=== PATIENT | male | born 1980 | race African-American/Black ===

== ENCOUNTER 2017-09-14 09:10 | Emergency (ER) | payer MEDICARE ==
[~2017-09-14] VITALS: Ht 154.9 cm; Wt 56.2 kg
[~2017-09-14 09:10] MED LIST: BACL10TA PO; HYDR-4100 PO; METH750T3 PO; TEMA15CA51 PO
[2017-09-14 09:15] VITALS: BP_SYST 143
[2017-09-14] MEDS ORDERED: KETOROLAC TROMETHAMINE 60 MG/2 ML VIAL IM ONE (10:15)
[2017-09-14 10:49] VITALS: BP_SYST 138
== END 2017-09-14 10:49 | disposition home or self-care (01) ==
LOC: SED 09:10
DX: S16.1XXA Strain of muscle, fascia and tendon at neck level, initial encounter (principal); K21.9 Gastro-esophageal reflux disease without esophagitis; Q90.9 Down syndrome, unspecified; Z91.011 Allergy to milk products; X58.XXXA Exposure to other specified factors, initial encounter; Y93.89 Activity, other specified; Y92.89 Other specified places as the place of occurrence of the external cause; Y99.8 Other external cause status
CPT/HCPCS: 72125; 96372; 99284; J1885; J7030

== ENCOUNTER 2019-03-05 11:43 | Emergency (ER) | payer BC, MEDICARE ==
[~2019-03-05] VITALS: Ht 154.9 cm; Wt 64.4 kg
[~2019-03-05 11:43] MED LIST changes: +TEMA15CA5 PO; -TEMA15CA51 PO
[2019-03-05 12:11] VITALS: BP_SYST 131
--- NOTE | 2019-03-05 12:19 | NUR ---
Patient to ER bed 4 to gown for evaluation. Side rails up.Report given to Ashtyn MALAVE.
--- NOTE | 2019-03-05 12:25 | NUR ---
EFRAIN Bell at bedside examining patient.
--- NOTE | 2019-03-05 12:35 | NUR ---
Medicated the pt per MD order. Will reassess
[2019-03-05] MEDS ORDERED: ACETAMINOPHEN/CODEINE 300 MG-30 MG TABLET PO ONE (12:45)
--- NOTE | 2019-03-05 13:00 | NUR ---
pt reports feeling better
[2019-03-05] MEDS ORDERED: CYCLOBENZAPRINE HCL 10 MG TABLET (FLEXERIL) PO ONE (13:45)
[2019-03-05 14:18] VITALS: BP_SYST 128
--- NOTE | 2019-03-05 14:21 | NUR ---
Note isabellelars in EDM - 03/05/19 at 1423 by [email or web address] Patient given written and verbal discharge instructions and verbalizes understanding. ER discussed with patient the results and treatment provided. Patient in stable condition. ID arm band removed. Rx of Naproxen and Flexeril given. Patient educated on pain management and to follow up with PMD. Pain Scale 2/10 tolerable for pt . Opportunity for questions provided and answered. Medication side effect fact sheet provided.
--- NOTE | 2019-03-05 14:21 | NUR ---
Patient and pt's father given written and verbal discharge instructions and verbalizes understanding. ER MD discussed with patient and pt's father the results and treatment provided. Patient in stable condition. ID arm band removed. Rx of Naproxen and Flexeril given. Patient and pt's father educated on pain management and to follow up with PMD. Pain Scale 2/10 tolerable for pt . Opportunity for questions provided and answered. Medication side effect fact sheet provided.
== END 2019-03-05 14:18 | disposition home or self-care (01) ==
LOC: SED 11:43
DX: M54.2 Cervicalgia (principal); K21.9 Gastro-esophageal reflux disease without esophagitis; Z88.8 Allergy status to other drugs, medicaments and biological substances; Z79.899 Other long term (current) drug therapy
CPT/HCPCS: 72125-TC; 99284